=== PATIENT | female | born 1970 | race Caucasian/White ===

== ENCOUNTER → 2025-02-10 | Outpatient (CLI) | payer OTHER, SELFPAY ==
[2025-02-10 16:29] LABS: Collection Type, Urine Clean Catch
[2025-02-10 17:28] LABS: Hemoglobin 13.3 g/dL (12.0-16.0); Red Blood Count 4.35 Miln/mm3 (4.00-5.20); White Blood Count 7.4 Thou/mm3 (3.6-11.0)
[2025-02-10 17:29] LABS: Basophils # (Auto) 0.0 Thou/mm3 (0.0-0.2); Basophils % (Auto) 1 % (0-2.5); Eosinophils # (Auto) 0.1 Thou/mm3 (0.0-0.5); Eosinophils % (Auto) 2 % (0-10); Hematocrit 40.4 % (36.0-46.0); Immature Granulocytes Auto 0.02 Thou/mm3 (0.00-0.00); Lymphocytes # (Auto) 3.3 Thou/mm3 (1.0-4.8); Lymphocytes % (Auto) 45 % (10-50); Mean Corpuscular HGB Conc 32.9 g/dl (31.0-37.0); Mean Corpuscular Hemoglobin 30.6 pg (25.0-35.0); Mean Corpuscular Volume 93 fL (80-100); Monocytes # (Auto) 0.6 Thou/mm3 (0.0-0.8); Monocytes % (Auto) 9 % (0-12); Neutrophils # (Auto) 3.3 Thou/mm3 (1.8-7.7); Neutrophils % (Auto) 44 % (37-80); Nucleated Red Blood Cell # 0.00 Thou/mm3 (0.00-0.00); Nucleated Red Blood Cell % 0 /100 WBC (0); Platelet Count 277 Thou/mm3 (140-440); RDW Standard Deviation 42.6 fL (36.4-46.3)
[2025-02-10 17:38] LABS: Glucose Estimated Average 108 mg/dL (80-131); Hemoglobin A1C 5.4 % Hgb (4.8-6.0)
[2025-02-10 17:51] LABS: Alanine Aminotransferase 10 U/L (10-49); Albumin, Serum 3.9 gm/dL (3.5-5.0); Albumin/Globulin Ratio 2.2 (1.2-2.2); Alkaline Phosphatase 78 U/L (46-116); Anion Gap 6 (7-16); Aspartate Amino Transferase 15 U/L (0-34); BUN/Creatinine Ratio 6 Ratio (12-20); Bilirubin,Total 0.4 mg/dL (0.3-1.2); Blood Urea Nitrogen < 5 mg/dL (9-23); Calcium 9.8 mg/dL (8.3-10.6); Calcium (Corrected) 9.9 mg/dL (8.5-10.1); Carbon Dioxide 27.4 mMol/L (20.0-31.0); Cardiac Risk Estimate 4.4 RATIO (3.7-5.6); Chloride 108 mMol/L (98-107); Cholesterol 212 mg/dL (132-200); Creatinine (Component) 0.9 mg/dL (0.6-1.3); Globulin 1.8 gm/dL (2.3-3.5); Glucose 84 mg/dL (74-106); HDL Cholesterol 48 mg/dL (40-60); LDL Cholesterol,Calculated 149 mg/dL (0-130); Osmolality,Calculated 277 (275-295); Potassium 3.8 mMol/L (3.4-5.1); Sodium 141 mMol/L (136-145); Thyroid Stimulating Hormone 2.97 uIU/mL (0.55-4.78); Total Protein 5.7 gm/dL (5.7-8.2); Triglycerides 77 mg/dL (30-150); eGFR > 60 See Note
[2025-02-10 18:23] LABS: Bilirubin,Urine Negative (Negative); Blood,Urine Negative (Negative); Clarity,Urine Clear (Clear/Hazy); Color,Urine Lt-Yellow (Lt Yel-Yel); Glucose, Urine Negative (Negative); Ketones,Urine Negative (Negative); Leukocyte Esterase,Urine Negative (Negative); Nitrite,Urine Negative (Negative); PH,Urine 6.0 (5.0-7.0); Protein,Urine Negative (Neg - Trace); RBC,Urine 2 /hpf (0-3); Specific Gravity,Urine 1.008 (1.001-1.035); Squamous Epithelial Cell,Urine 1 /hpf (0-5); Urobilinogen,Urine Negative mg/dL (0.0-1.0); WBC,Urine 2 /hpf (0-5)
== END | disposition home or self-care (01) ==
LOC: COPL 15:34
PROVIDERS: PCP Physician Assistant
DX: Z00.00 Encounter for general adult medical examination without abnormal findings (principal); Z11.59 Encounter for screening for other viral diseases; Z79.899 Other long term (current) drug therapy
CPT/HCPCS: 36415; 80053; 80061; 81001; 83036; 84443; 85025

== ENCOUNTER 2025-05-07 04:53 | Emergency (ER) | payer BC, SELFPAY ==
[2025-05-07] VITALS (8 sets, daily range): BP systolic 93–118; BP diastolic 69–87; PULSE 78–120; RESP 16–22; TEMP 36.6–36.8; O2SAT 91–99; BMI 17.5
--- NOTE | 2025-05-07 05:10 | EKG_ITS ---
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
--- NOTE | 2025-05-07 05:10 | XR_ITS ---
EXAMINATION: PA chest single view TECHNIQUE: Upright PA chest single view Date and time: May 07, 2025, 0512 hours, comparison September 22, 2018 INDICATIONS: Chest pain today. FINDINGS: Significant hyperexpansion Normal heart size No lobar pneumonia or pulmonary edema IMPRESSION: COPD with significant hyperexpansion
--- NOTE | 2025-05-07 05:11 | PD.EDRME ---
Rapid Medical Screening Exam RME Arrival date/time: 05/07/25 04:53 This is a case of 54-year-old female who came in in the emergency room with chest pain shortness of breath cough fever and ear pain for 7 days worsening of the symptoms this patient decided to start consult here in the emergency room patient have history of asthma Chief Complaint: Shortness of Breath/Dyspnea Time Seen by Provider: 05/07/25 05:10 Exam: Wheezing both lower lung field no crackles no rales no retraction no stridor heart normal rate regular rhythm normal Clinical Impression: Chest pain shortness of breath
[2025-05-07] MEDS: DEXAMETHASONE SOD PHOS INJ 10 MG/ML VIAL IM (05:50)
[2025-05-07 05:58] LABS: Basophils # (Auto) 0.0 Thou/mm3 (0.0-0.2); Basophils % (Auto) 0 % (0-2.5); Eosinophils # (Auto) 0.2 Thou/mm3 (0.0-0.5); Eosinophils % (Auto) 3 % (0-10); Hematocrit 52.2 % (36.0-46.0); Hemoglobin 17.3 g/dL (12.0-16.0); Immature Granulocytes Auto 0.02 Thou/mm3 (0.00-0.00); Lymphocytes # (Auto) 2.9 Thou/mm3 (1.0-4.8); Lymphocytes % (Auto) 41 % (10-50); Mean Corpuscular HGB Conc 33.1 g/dl (31.0-37.0); Mean Corpuscular Hemoglobin 31.6 pg (25.0-35.0); Mean Corpuscular Volume 95 fL (80-100); Monocytes # (Auto) 0.5 Thou/mm3 (0.0-0.8); Monocytes % (Auto) 7 % (0-12); Neutrophils # (Auto) 3.5 Thou/mm3 (1.8-7.7); Neutrophils % (Auto) 49 % (37-80); Nucleated Red Blood Cell # 0.00 Thou/mm3 (0.00-0.00); Nucleated Red Blood Cell % 0 /100 WBC (0); Platelet Count 217 Thou/mm3 (140-440); RDW Standard Deviation 43.9 fL (36.4-46.3); Red Blood Count 5.48 Miln/mm3 (4.00-5.20); White Blood Count 7.1 Thou/mm3 (3.6-11.0)
[2025-05-07] MEDS: ALBUTEROL/IPRATROPIUM (Duoneb) RT SOL 3 ML NEBU INH (06:08)
[2025-05-07 06:41] LABS: Troponin I < 0.020 ng/mL (0.0-0.045)
[2025-05-07 06:42] LABS: Alanine Aminotransferase 11 U/L (10-49); Albumin, Serum 4.9 gm/dL (3.5-5.0); Albumin/Globulin Ratio 2.1 (1.2-2.2); Alkaline Phosphatase 107 U/L (46-116); Anion Gap 7 (7-16); Aspartate Amino Transferase 17 U/L (0-34); BUN/Creatinine Ratio 10 Ratio (12-20); Bilirubin,Total 0.6 mg/dL (0.3-1.2); Blood Urea Nitrogen 12 mg/dL (9-23); Calcium 10.2 mg/dL (8.3-10.6); Calcium (Corrected) 10.2 mg/dL (8.5-10.1); Carbon Dioxide 28.6 mMol/L (20.0-31.0); Chloride 106 mMol/L (98-107); Creatinine (Component) 1.2 mg/dL (0.6-1.3); Estimated Creatinine Clearance 39.1 mL/min (>60); Globulin 2.3 gm/dL (2.3-3.5); Glucose 136 mg/dL (74-106); Osmolality,Calculated 284 (275-295); Potassium 4.7 mMol/L (3.4-5.1); Sodium 142 mMol/L (136-145); Total Protein 7.2 gm/dL (5.7-8.2); eGFR 54 See Note
--- NOTE | 2025-05-07 07:49 | PC.NURSE ---
Pt made aware that we still need a urine sample from her, Pt stated, I only pee once a day..do i can't go right now. Pt was educated on the plan of care, call light within reach.
--- NOTE | 2025-05-07 07:57 | EDNOTE_ITS ---
ED SOB =RME/HPI General Chief Complaint: Shortness of Breath/Dyspnea Stated Complaint: CAN'T BREATH, FEVER, N/V, FEEL WEAK, VAMSI. EAR PAIN Time Seen by Provider: 05/07/25 05:10 Source: patient Arrival date/time: 05/07/25 04:53 Mode of arrival: ambulatory Limitations: no limitations RME / HPI Complaint: shortness of breath RME / HPI Narrative: 05/07/25 04:53 This is a case of 54-year-old female who came in in the emergency room with chest pain shortness of breath cough fever and ear pain for 7 days worsening of the symptoms this patient decided to start consult here in the emergency room patient have history of asthma Dr. Marino evaluation Patient is a 54-year-old female with medical history notable for smoking, COPD, within Emergency Department with concerns for body aches, shortness of breath, cough and generally feeling unwell. Patient states that there were other sick people at work. Feels that this is her asthma. Denies drugs alcohol abdominal pain dysuria hematuria melena bloody stools.. Exam: Wheezing both lower lung field no crackles no rales no retraction no stridor heart normal rate regular rhythm normal Impression: Chest pain shortness of breath Related Data Previous Rx's ?Medication ?Instructions ?Recorded metoclopramide HCl 10 mg tablet 10 mg PO Q6H PRN nause a and 02/12/24 (Reglan) vomiting #30 tabs Allergies Allergy/AdvReac Type Severity Reaction Status Date / Time adhesive tape Allergy Severe Hives Verified 05/07/25 05:02 cyclobenzaprine (From Allergy Irritable Verified 05/07/25 05:02 Flexeril) gabapentin Allergy Irritable Verified 05/07/25 05:02 quetiapine (From Seroquel) Allergy Irritable Verified 05/07/25 05:02 ED Exam General Limitations: Present no limitations General appearance: Present alert Head Head exam: Present atraumatic Eye Eye exam: Present normal appearance and PERRL ENT ENT exam: Present normal exam and normal oropharynx Neck Neck exam: Present normal inspection Chest Chest inspection: Present normal inspection and symmetric chest wall rise Respiratory Respiratory exam: Present other (Wheezes, diminished) Cardiovascular Cardiovascular exam: Present regular rate Abdominal Exam Abdominal exam: Present soft; Absent distention or tenderness Extremities Exam Extremities exam: Present normal inspection and full ROM Psychiatric Psychiatric exam: Present normal affect Skin Skin exam: Present warm, dry and intact Course Quality Measures none Orders Category Date Time Status Bedside COVID-19 Antigen Test NOW Care 05/07/25 08:02 Active EKG (ED ONLY) *Do not use* NOW Care 05/07/25 05:10 Completed EKG (ED Only) Stat Exams 05/07/25 05:10 Draft XR chest 1V Stat Exams 05/07/25 05:10 Completed CBC Stat Lab 05/07/25 05:50 Completed Comprehensive Metabolic Panel Stat Lab 05/07/25 05:50 Completed HCG,Qualitative Serum Stat Lab 05/07/25 05:50 Completed Influenza A & B Rapid Panel Stat Lab 05/07/25 08:08 Completed Troponin I Stat Lab 05/07/25 05:50 Completed ALBUTEROL RT 0.5ml [Proventil Rt 0.5ml] Med 05/07/25 09:26 Discontinued 10 mg INH X1 ONE ALBUTEROL RT 0.5ml [Proventil Rt 0.5ml] Med 05/07/25 08:01 Discontinued 7.5 mg INH X1 ONE Albuterol/Ipratr Rt [place] [Duoneb Rt Galilea] Med 05/07/25 05:10 Discontinued 3 ml INH X1 ONE Dexamethasone Inj [Decadron Inj] Med 05/07/25 05:10 Discontinued 10 mg IM X1 ONE Sodium Chloride Rt [place] 0.9% [NS Rt Galile[place] 0.9%] Med 05/07/25 08:01 Discontinued 3 ml INH PRN PRN Sodium Chloride Rt [place] 0.9% [NS Rt [place] 0.9%] Med 05/07/25 09:26 Active 3 ml INH PRN PRN Vital Signs Vital signs: Vital Signs Pulse Rate 105 H 05/07/25 06:11 Respiratory Rate 18 05/07/25 06:11 Pulse Oximetry (%) 99 05/07/25 06:11 Shortness of Breath / Dyspnea MDM Narrative MDM Narrative:: Patient is a 54-year-old female is seen emerged from concerns for shortness of breath cough body aches and generally feeling unwell. Vital signs and exam as listed. Concern for viral illness, pneumonia, COPD exacerbation,. Patient without chest pain or palpitations, less likely ACS arrhythmia. Prior provider evaluated patient ordered labs EKG chest x-ray. Also offered medication for symptom relief. Labs without any acute hematologic or significant metabolic abnormalities troponin not elevated. EKG performed today at 5 11 in the morning, notable for sinus tachycardia, normal intervals, nonspecific T wave changes, not a cardiac alert. Interpreted by Dr. Robyn Marino. Chest x-ray with hyperinflation consistent with COPD, no focal consolidations effusions or infiltrate. On my assessment, patient hemodynamically stable not in distress, continues to be diminished bilateral lung casanova ordered additional breathing treatment. Has mild wheezing. Ordered swabs. Swabs negative, patient is non, on reevaluation continues to be wheezy at times pulse ox dips to the high 80s. Will provide additional breathing treatment and magnesium. If symptoms do not improve, we will discuss admission with hospitalist service 10:55a patient requesting to leave. States she does not want to leave for additional treatment and assessment. Patient understands that we are concerned that she has an emergency medical condition and that if she does not get further. She can further decompensate or . Patient is GCS 15 and she has capacity, despite her best efforts to have her stay to continue getting care patient left the emergency department. Patient left AGAINST MEDICAL ADVICE. Patient data External records reviewed:: [facility] previous records Clinical information provided by:: patient Social determinants that could affect healthcare access:: none Patient has the following chronic illnesses:: See MDM How is presenting disease/condition affected by chronic disease/condition?: exacerbated by Evaluation data The following diagnostics were reviewed and interpreted by me:: lab results, radiology exam(s) and EKG tracing(s) Lab and/or radiology exams considered but not ordered:: None Interpretation Summary: See MDM Medications / Prescriptions Medications or Prescriptions considered but not ordered:: None Medication administrations:: Medication Administration History Sodium Chloride (Sodium Chloride Rt [place] 0.9% 3 Ml Nebu) 3 ml INH PRN PRN PRN Reason: SOLN Stop: 06/06/25 09:25 Discontinued Medications Albuterol (Albuterol Rt 2.5 Mg/0.5 Ml Nebu) 7.5 mg INH X1 ONE Stop: 05/07/25 08:02 Last Admin: 05/07/25 08:38 Dose: 7.5 mg Documented By: ALISE Albuterol (Albuterol Rt 2.5 Mg/0.5 Ml Nebu) 10 mg INH X1 ONE Stop: 05/07/25 09:27 Albuterol/Ipratropium (Albuterol/Ipratropium (Duoneb) Rt Galilea 3 Ml Nebu) 3 ml INH X1 ONE Stop: 05/07/25 05:11 Last Admin: 05/07/25 06:08 Dose: 3 ml Documented By: MARGARITA Dexamethasone Sodium Phosphate (Dexamethasone Sod Phos Inj 10 Mg/Ml Vial) 10 mg IM X1 ONE Stop: 05/07/25 05:11 Last Admin: 05/07/25 05:50 Dose: 10 mg Documented By: MARCE Sodium Chloride (Sodium Chloride Rt [place] 0.9% 3 Ml Nebu) 3 ml INH PRN PRN PRN Reason: SOLN Stop: 06/06/25 08:00 See above Consultations Consultation(s) initiated? (list below): No Diagnosis Shortness of Breath Differential Diagnosis: other Most likely diagnosis given after review of the tests above:: COPD exacerbation, body aches Admission Indicated Admission indicated?: not indicated (AMA) Admission Request Was there a request for admission?: No Disposition Plan Disposition Plan: other (specify) (AMA) Discharge Plan Plan Patient Disposition: HOME (Self Care) Prescriptions/Referrals Prescriptions/Med Rec: No Action metoclopramide HCl [Reglan] 10 mg tablet 10 mg PO Q6H PRN (Reason: nausea and vomiting) Qty: 30 0RF Referrals: Diogo Francois FNP [Primary Care Provider] - In 1 week Problem List Clinical Impression: Acute exacerbation of COPD with asthma Patient/Caregiver Discharge Instructions Print Language: [place] Stand Alone Forms: Jennifer Rg Info., Patient Portal Info Letter
[2025-05-07] MEDS: ALBUTEROL RT 2.5 MG/0.5 ML NEBU 7.5 MG INH (08:38)
[2025-05-07 08:42] LABS: HCG,Qualitative Serum Negative
[2025-05-07 08:46] LABS: Influenza A Ag Negative; Influenza B Ag Negative
--- NOTE | 2025-05-07 10:05 | PC.NURSE ---
Called RT and spoke to Constance to let her know that this Pt need a breathing Tx, in which she stated, ok
--- NOTE | 2025-05-07 10:40 | PC.NURSE ---
Pt was given an update on plan of care, but Pt stated, I am not going to wait any longer, I'm getting tired of being in this room and you guys are not doing anything for me..I need to go outside and get some fresh air Pt was made aware that Dr. Marino order another breathing treatment for her and that Rt was already made aware of breathing Tx order. Pt stated, No, I am not waiting, if my condition was that was that bad, you maggy will be in hurry to help me...I am just going to go to [facility]. Pt was made aware (Pamela dry charge process attendant in room present) that Dr. Marino does not want to discharge her yet, and was made aware that if she leaves, her condition can worsen, up to the point that can occur, but Pt still refused to stay( Pt a GCS of 15, A&O X4) Pt then walked out of room 6 with a steady gate and left the ER.
== END 2025-05-07 10:40 | disposition left against medical advice (07) ==
PROVIDERS: Nurse Practitioner Family; Emergency Provider Emergency Medicine
DX: J44.1 Chronic obstructive pulmonary disease with (acute) exacerbation (principal); J45.901 Unspecified asthma with (acute) exacerbation; Z87.891 Personal history of nicotine dependence
CPT/HCPCS: 36415; 71045; 80053; 81001; 81025; 84484; 84703; 85025; 87502; 87635; 93005; 94640; 96372; 99284; A9270; J1100

== ENCOUNTER 2025-05-07 15:42 | Emergency (ER) | payer BC, SELFPAY ==
[2025-05-07 16:14] VITALS: BP 96/71; PULSE 98; RESP 20; TEMP 36.7; O2SAT 95; BMI 17.5
--- NOTE | 2025-05-07 16:23 | XR_ITS ---
EXAMINATION: PA chest single view TECHNIQUE: Upright PA chest single view Date and time: May 07, 2025, 1631 hours, comparison May 07, 2025 INDICATIONS: Chest pain today. FINDINGS: Significant hyperexpansion. Normal heart size Accentuation interstitial markings throughout the lungs No rafael lobar pneumonia No pulmonary edema IMPRESSION: Acute exacerbation COPD pattern
--- NOTE | 2025-05-07 16:24 | EKG_ITS ---
[facility] Test Date: 2025-05-07 Pat Name: ARIANNE LOPEZ Department: Room: - Gender: Female [employer]: : 1970 Requested By: Little Choi Order Number: [id number] Reading MD: Little Choi Measurements Intervals [place] Rate: 81 P: 72 PA: 181 QRS: -63 QRSD: 98 T: 87 QT: 412 QTc: 479 Interpretive Statements SINUS RHYTHM LEFT ANTERIOR FASCICULAR BLOCK [QRS AXIS <= -45, QR IN I, RS IN II] INFERIOR MYOCARDIAL INFARCTION , PROBABLY OLD [40+ ms Q WAVE AND/OR ST/T ABNORMALITY IN II/aVF] MODERATE T-WAVE ABNORMALITY, CONSIDER ANTERIOR ISCHEMIA [-0.1+ mV T-WAVE IN V3/V4] Compared to ECG 05/07/2025 05:11:12 Left anterior fascicular block now present T-wave abnormality now present Possible ischemia now present Sinus tachycardia no longer present Right-axis deviation no longer present Myocardial infarct finding still present /store/S0/[id number]/[id number].pdf
--- NOTE | 2025-05-07 16:25 | PD.EDRME ---
Rapid Medical Screening Exam E Arrival date/time: 05/07/25 15:42 This is a 54-year-old female that was here earlier and left AGAINST MEDICAL ADVICE. Patient complains of chest pain and shortness of breath. Patient states that when she left she is having an anxiety attack and she fell like she needed to get out of the hospital. Patient states that she is also not urinating very much and it is very dark in color. Patient states it is hard for her to urinate. Patient also complains of trouble breathing. When she was here previously she was given breathing treatments. Patient appears to be in no acute distress. Patient has a history of depression, asthma. I have greeted and performed a focused initial assessment of this patient. Initial appropriate labs ordered at this time. A comprehensive ED assessment and evaluation of the patient and analysis of all test and completion of medical decision making process will be conducted by additional ED provider. Chief Complaint: Shortness of Breath/Dyspnea Time Seen by Provider: 05/07/25 16:15 Vital signs: Vital Signs Temperature 98.0 F 05/07/25 16:14 Pulse Rate 98 05/07/25 16:14 Respiratory Rate 20 05/07/25 16:14 Blood Pressure 96/71 05/07/25 16:14 Pulse Oximetry (%) 95 05/07/25 16:14 Oxygen Delivery Method Room Air 05/07/25 16:14 Exam: Appears to be in no acute distress, breathing even and unlabored, skin warm and dry Clinical Impression: Chest pain
[2025-05-07 16:51] LABS: Basophils # (Auto) 0.0 Thou/mm3 (0.0-0.2); Basophils % (Auto) 0 % (0-2.5); Eosinophils # (Auto) 0.0 Thou/mm3 (0.0-0.5); Eosinophils % (Auto) 0 % (0-10); Hematocrit 45.2 % (36.0-46.0); Hemoglobin 14.8 g/dL (12.0-16.0); Immature Granulocytes Auto 0.02 Thou/mm3 (0.00-0.00); Lymphocytes # (Auto) 1.0 Thou/mm3 (1.0-4.8); Lymphocytes % (Auto) 21 % (10-50); Mean Corpuscular HGB Conc 32.7 g/dl (31.0-37.0); Mean Corpuscular Hemoglobin 30.4 pg (25.0-35.0); Mean Corpuscular Volume 93 fL (80-100); Monocytes # (Auto) 0.2 Thou/mm3 (0.0-0.8); Monocytes % (Auto) 4 % (0-12); Neutrophils # (Auto) 3.6 Thou/mm3 (1.8-7.7); Neutrophils % (Auto) 74 % (37-80); Nucleated Red Blood Cell # 0.00 Thou/mm3 (0.00-0.00); Nucleated Red Blood Cell % 0 /100 WBC (0); Platelet Count 211 Thou/mm3 (140-440); RDW Standard Deviation 42.4 fL (36.4-46.3); Red Blood Count 4.87 Miln/mm3 (4.00-5.20); White Blood Count 4.8 Thou/mm3 (3.6-11.0)
[2025-05-07 17:11] LABS: Alanine Aminotransferase 12 U/L (10-49); Albumin, Serum 4.6 gm/dL (3.5-5.0); Albumin/Globulin Ratio 2.3 (1.2-2.2); Alkaline Phosphatase 97 U/L (46-116); Anion Gap 9 (7-16); Aspartate Amino Transferase 17 U/L (0-34); BUN/Creatinine Ratio 12 Ratio (12-20); Bilirubin,Total 0.3 mg/dL (0.3-1.2); Blood Urea Nitrogen 15 mg/dL (9-23); Calcium 9.3 mg/dL (8.3-10.6); Calcium (Corrected) 9.3 mg/dL (8.5-10.1); Carbon Dioxide 26.5 mMol/L (20.0-31.0); Chloride 105 mMol/L (98-107); Creatinine (Component) 1.3 mg/dL (0.6-1.3); Estimated Creatinine Clearance 36.1 mL/min (>60); Globulin 2.0 gm/dL (2.3-3.5); Glucose 396 mg/dL (74-106); Osmolality,Calculated 297 (275-295); Potassium 3.8 mMol/L (3.4-5.1); Sodium 140 mMol/L (136-145); Total Protein 6.6 gm/dL (5.7-8.2); Troponin I < 0.020 ng/mL (0.0-0.045); eGFR 49 See Note
[2025-05-07 17:13] LABS: B-Type Natriuretic Peptide 22 pg/mL (0-100)
--- NOTE | 2025-05-07 21:15 | EDNOTE_ITS ---
ED SOB =RME/HPI General Chief Complaint: Shortness of Breath/Dyspnea Stated Complaint: SOB X 2 days, was here earlier Time Seen by Provider: 05/07/25 16:15 Arrival date/time: 05/07/25 15:42 RME / HPI RME / HPI Narrative: 05/07/25 15:42 This is a 54-year-old female that was here earlier and left AGAINST MEDICAL ADVICE. Patient complains of chest pain and shortness of breath. Patient states that when she left she is having an anxiety attack and she fell like she needed to get out of the hospital. Patient states that she is also not urinating very much and it is very dark in color. Patient states it is hard for her to urinate. Patient also complains of trouble breathing. When she was here previously she was given breathing treatments. Patient appears to be in no acute distress. Patient has a history of depression, asthma. I have greeted and performed a focused initial assessment of this patient. Initial appropriate labs ordered at this time. A comprehensive ED assessment and evaluation of the patient and analysis of all test and completion of medical decision making process will be conducted by additional ED provider. Dr. Anthony?s Main ED Evaluation: 54yo female with a history of COPD presents to the ED for a chief complaint of shortness of breath x this morning. Patient was seen here this morning for the same complaint and left against medical advice due to having a panic attack. Patient denies any fever, chills, or any other associated symptoms. She does not have a nebulizer machine at home, but she does have an inhaler. She does still smoke cigarettes. Related Data Previous Rx's ?Medication ?Instructions ?Recorded metoclopramide HCl 10 mg tablet 10 mg PO Q6H PRN nause a and 02/12/24 (Reglan) vomiting #30 tabs albuterol sulfate 90 mcg/actuation 2 inh inhalation Q4 H PRN shortness 05/07/25 breath activated powder inhaler of breath #1 ea prednisone 50 mg tablet 50 mg PO QDAY #7 tabs Allergies Allergy/AdvReac Type Severity Reaction Status Date / Time adhesive tape Allergy Severe Hives Verified 05/07/25 15:47 cyclobenzaprine (From Allergy Irritable Verified 05/07/25 15:47 Flexeril) gabapentin Allergy Irritable Verified 05/07/25 15:47 quetiapine (From Seroquel) Allergy Irritable Verified 05/07/25 15:47 Review of Systems Review of Systems Systems Reviewed: All systems reviewed, normal except as documented ED Exam Narrative Physical exam: Generally patient is alert mildly dyspneic but able to talk in full sentences, heart regular rate and rhythm, lungs distant breath sounds bilaterally with end expiratory wheezes with fair to good air exchange, chest shows no retractions, abdomen shows no accessory muscle respiratory use, extremities show no edema, neurologic exam [place] Coma Scale of 15 without focal motor deficit Course Course Course Narrative: CXR is ordered for determining the etiology of shortness of breath. Quality Measures none Orders Category Date Time Status EKG (ED ONLY) *Do not use* NOW Care 05/07/25 16:24 Completed EKG (ED Only) Stat Exams 05/07/25 16:24 Draft XR chest 1V Stat Exams 05/07/25 16:23 Completed BNP [B-Type Natriuretic Peptide] Stat Lab 05/07/25 16:40 Completed CBC Stat Lab 05/07/25 16:40 Completed Comprehensive Metabolic Panel Stat Lab 05/07/25 16:40 Completed Drug Screen,Urine Stat Lab 05/07/25 21:07 Completed Troponin I Stat Lab 05/07/25 16:40 Completed Urinalysis, C/S if Indicated Stat Lab 05/07/25 21:03 Completed ALBUTEROL RT 0.5ml [Proventil Rt 0.5ml] Med 05/07/25 21:24 Discontinued 15 mg INH X1 ONE Ipratropium [place] Rt Galilea [Atrovent Rt Galilea] Med 05/07/25 21:24 Discontinued 1 mg INH X1 ONE MethylPREDNISolone. [SoluMEDROL Inj] Med 05/07/25 21:24 Discontinued 125 mg IV X1 ONE MethylPREDNISolone.* [SoluMEDROL Inj] Med 05/07/25 21:33 Discontinued 125 mg IVP X1 ONE Sodium Chloride Rt [place] 0.9% [NS Rt [place] 0.9%] Med 05/07/25 21:24 Active 3 ml INH PRN PRN Vital Signs Vital signs: Vital Signs Temperature 98.0 F 05/07/25 16:14 Pulse Rate 98 05/07/25 16:14 Respiratory Rate 20 05/07/25 16:14 Blood Pressure 96/71 05/07/25 16:14 Pulse Oximetry (%) 95 05/07/25 16:14 Oxygen Delivery Method Room Air 05/07/25 16:14 Shortness of Breath / Dyspnea MDM Narrative MDM Narrative:: Scribe Attestation: 05/07/25 Sheron Gilliam am scribing for and in the presence of Dr. Anthony. I reviewed the patient's workup from earlier today. 2 separate chest x-ray show hyperexpansion of lung casanova but without consolidation. EKG shows normal sinus rhythm at a rate of 81 with Q waves in lead III and aVF. No ST segment changes. Troponin is not elevated. Electrolytes are normal. Patient received 15 mg of albuterol and 1 mg of Atrovent Med-Neb treatment over 1 hour as well as Solu- Medrol 125 mg IV. Patient feels improved and wishes to go home. She will be discharged on albuterol and prednisone to be taken as prescribed. Patient's blood sugar was elevated here in the emergency room but is never been elevated in the past so I think this may be due to the effect of steroid. Patient data External records reviewed:: [facility] previous records (Per chart review, patient was seen here this morning for COPD exacerbation and left AMA.) Clinical information provided by:: patient Social determinants that could affect healthcare access:: none Patient has the following chronic illnesses:: COPD How is presenting disease/condition affected by chronic disease/condition?: exacerbated by Evaluation data The following diagnostics were reviewed and interpreted by me:: lab results, radiology exam(s) and EKG tracing(s) Lab and/or radiology exams considered but not ordered:: none Interpretation Summary: [facility] Report Signed Patient: ARIANNE LOPEZ [facility]. Record#: [id number] Birthdate: 1970 Age/Sex: 54 / F Location: [facility] Attending Dr: Ordering Physician: Little Choi NP Date of Service: 05/07/25 Procedure(s): XR chest 1V Accession Number(s): [id number] cc: Gabriele Mas MD; Little Choi NP~ EXAMINATION: PA chest single view TECHNIQUE: Upright PA chest single view Date and time: May 07, 2025, 1631 hours, comparison May 07, 2025 INDICATIONS: Chest pain today. FINDINGS: Significant hyperexpansion. Normal heart size Accentuation interstitial markings throughout the lungs No rafael lobar pneumonia No pulmonary edema IMPRESSION: Acute exacerbation COPD pattern Dictated By: Gabriele Mas MD Signed By: <Electronically signed by Gabriele Mas MD in OV> 05/07/25 1730 Medications / Prescriptions Medications or Prescriptions considered but not ordered:: none Medication administrations:: Medication Administration History Sodium Chloride (Sodium Chloride Rt [place] 0.9% 3 Ml Nebu) 3 ml INH PRN PRN PRN Reason: SOLN Stop: 06/06/25 21:23 Last Admin: 05/07/25 21:36 Dose: 3 ml Documented By: GB Discontinued Medications Albuterol (Albuterol Rt 2.5 Mg/0.5 Ml Nebu) 15 mg INH X1 ONE Stop: 05/07/25 21:25 Last Admin: 05/07/25 21:36 Dose: 15 mg Documented By: GB Ipratropium [place] (Ipratropium Rt 0.5 Mg/ 2.5 Ml Nebu) 1 mg INH X1 ONE Stop: 05/07/25 21:25 Last Admin: 05/07/25 21:36 Dose: 1 mg Documented By: GB Methylprednisolone Sodium Succinate (Methylprednisolone Sod 500 Mg/8 Ml Vial) 125 mg IV X1 ONE Stop: 05/07/25 21:25 Methylprednisolone Sodium Succinate (Methylprednisolone Sod Succ 62.5 Mg/Ml 2ml Vial) 125 mg IVP X1 ONE Stop: 05/07/25 21:34 Last Admin: 05/07/25 21:51 Dose: 125 mg Documented By: EB see above Consultations Consultation(s) initiated? (list below): No Diagnosis Shortness of Breath Differential Diagnosis: other (See MDM) Most likely diagnosis given after review of the tests above:: see clinical impression below Admission Indicated Admission indicated?: not indicated Admission Request Was there a request for admission?: No Disposition Plan Disposition Plan: Discharge Discharge Attestation Discharge Attestation: The patient and all family members were given an opportunity to ask questions and understood the discharge instructions. Discharge instructions specifically effects, indications for sooner follow up or return to the emergency department, and the expected course of current diagnosis. Patient condition: Stable Discharge Plan Plan Patient Disposition: HOME (Self Care) Prescriptions/Referrals Prescriptions/Med Rec: New prednisone 50 mg tablet 50 mg PO QDAY Qty: 7 0RF albuterol sulfate 90 mcg/actuation aerosol powdr breath activated 2 inh inhalation Q4H PRN (Reason: shortness of breath) Qty: 1 0RF No Action metoclopramide HCl [Reglan] 10 mg tablet 10 mg PO Q6H PRN (Reason: nausea and vomiting) Qty: 30 0RF Referrals: No Primary/Family,Physician [Primary Care Provider] - In 1 week Problem List Clinical Impression: COPD exacerbation Patient/Caregiver Discharge Instructions Print Language: Frisian Stand Alone Forms: Jennifer Award Info., Patient Portal Info Letter
[2025-05-07 21:18] LABS: Collection Type, Urine Voided
[2025-05-07 21:22] VITALS: BP 116/81; PULSE 76; RESP 16; O2SAT 95
[2025-05-07 21:28] LABS: Bacteria,Urine Rare; Bilirubin,Urine Negative (Negative); Blood,Urine Negative (Negative); Clarity,Urine Turbid (Clear/Hazy); Color,Urine Lt-Yellow (Lt Yel-Yel); Culture Indicated,Urine Contaminated; Glucose, Urine 4+ (Negative); Ketones,Urine Negative (Negative); Leukocyte Esterase,Urine Positive (Negative); Nitrite,Urine Negative (Negative); PH,Urine 6.0 (5.0-7.0); Protein,Urine Negative (Neg - Trace); RBC,Urine 1 /hpf (0-3); Specific Gravity,Urine 1.015 (1.001-1.035); Squamous Epithelial Cell,Urine 27 /hpf (0-5); Urobilinogen,Urine Negative mg/dL (0.0-1.0); WBC,Urine 12 /hpf (0-5)
[2025-05-07 21:32] LABS: Amphetamine/Methamp Scrn,U Negative (Negative); Barbiturate Screen,Urine Negative (Negative); Benzodiazepines Screen,Urine Negative (Negative); Benzoylecgonine Screen, Ur Negative (Negative); Fentanyl Screen,Urine Negative (Negative); Opiate Screen,Urine Negative (Negative); THC Screen,Urine Negative (Negative)
[2025-05-07 21:36] VITALS: PULSE 86
[2025-05-07] MEDS: ALBUTEROL RT 2.5 MG/0.5 ML NEBU 15 MG INH (21:36)
[2025-05-07] MEDS: IPRATROPIUM RT 0.5 MG/ 2.5 ML NEBU 1 MG INH (21:36)
[2025-05-07] MEDS: SODIUM CHLORIDE RT SOL 0.9% 3 ML NEBU INH (21:36)
[2025-05-07 21:40] VITALS: PULSE 77; RESP 18; O2SAT 99
[2025-05-07] MEDS: MethylPREDNISolone SOD SUCC 62.5 MG/ML 2ML VIAL 125 MG IVP (21:51)
--- NOTE | 2025-05-07 22:01 | PC.NURSE ---
Pt is complaining that her IV is hurting and requested removal of it, I removed it did not appear infiltrated flushed well. Pt c/o pain head and neck and chest Pt stated she is on pain mangt at home. Informed MD of c/o pain will address sob at this time
--- NOTE | 2025-05-07 22:07 | PC.LAC ---
pt cont to c/o left arm pain at iv insert site ice pack provided
--- NOTE | 2025-05-07 22:55 | PC.NURSE ---
Pt upset that she was not given IV pain meds, then stated her IV was bad and needed to come out i removed, the iv site appears great no redness no edema and no s/s of concern. Pt is stating her pain is being ignored MD aware. Pt now stating she wants to leave MD brigitte at bedside
[2025-05-07 22:59] VITALS: BP 96/70; PULSE 77; RESP 18; TEMP 36.6; O2SAT 95
--- NOTE | 2025-05-07 23:00 | PC.NURSE ---
Pt removed all leads and VS monitoring and refused further VS
--- NOTE | 2025-05-07 23:13 | PC.NURSE ---
Pt stated she was told by she was dying and she asked how long she has to live, I at no point overherd the MD state she was Dying i was present in room. Pt discharged by and patricia on new rx sent to pharmacy and f/u needed with PCP
== END 2025-05-07 23:27 | disposition home or self-care (01) ==
PROVIDERS: Nurse Practitioner Family; Emergency Provider Emergency Medicine
DX: J44.1 Chronic obstructive pulmonary disease with (acute) exacerbation (principal); F17.210 Nicotine dependence, cigarettes, uncomplicated; F41.0 Panic disorder [episodic paroxysmal anxiety]
CPT/HCPCS: 36415; 71045; 80053; 80307; 81001; 83880; 84484; 85025; 93005; 94644; 96374; 99284; J2919